=== PATIENT | female | born 1990 | race Caucasian/White ===

== ENCOUNTER 2016-12-01 21:01 | Emergency (ER) | payer SELFPAY ==
[~2016-12-01] VITALS: Ht 157.5 cm; Wt 85.8 kg
[2016-12-01] MEDS ORDERED: SODIUM CHLORIDE 0.9% 1,000ML IVBOLUS ONE (22:30)
[2016-12-01] MEDS ORDERED: KETOROLAC 30 MG/1 ML IVPush ONE (22:30)
[2016-12-01] MEDS ORDERED: KETOROLAC 30 MG/1 ML ONE (22:31)
[2016-12-01 22:52] LABS: HEMATOCRIT 45.8 % (34.6-47.8); HEMOGLOBIN 15.6 g/dL (11.7-16.4); WHITE BLOOD COUNT 9.2 x10^3/uL (3.4-10)
[2016-12-01 23:04] LABS: BLOOD UREA NITROGEN 12 mg/dL (7-18)
[2016-12-01 23:13] LABS: IS PT STATUS REG ER OR PRE ER? YES
[2016-12-02 00:30] VITALS: BP 106/57
== END 2016-12-02 00:55 | disposition home or self-care (01) ==
LOC: ED 23:30
DX: R07.89 Other chest pain (principal); R09.1 Pleurisy
CPT/HCPCS: 36415; 71010; 80048; 82040; 84484; 84703; 85025; 85379; 93005; 96361; 96374; 99285; J1885; J7030

== ENCOUNTER 2019-01-11 10:37 | Emergency (ER) | payer OTHER ==
[~2019-01-11] VITALS: Ht 157.5 cm; Wt 85.7 kg
[2019-01-11] MEDS ORDERED: KETOROLAC 30 MG/1 ML IM ONE (11:00)
[2019-01-11] MEDS ORDERED: DIAZEPAM 5 MG TABLET PO ONE (11:00)
[2019-01-11] MEDS ORDERED: KETOROLAC 30 MG/1 ML ONE (11:14)
[2019-01-11] MEDS ORDERED: DIAZEPAM 5 MG TABLET ONE (11:14)
--- NOTE | 2019-01-11 12:03 | NUR ---
report taken from WINSOME Asencio, pt in MRI. this RN assuming care at this time.
--- NOTE | 2019-01-11 12:18 | NUR ---
pt back from MRI
[2019-01-11 12:22] VITALS: BP 109/68
== END 2019-01-11 12:59 | disposition home or self-care (01) ==
LOC: ED 12:30
DX: M54.5 Low back pain (principal); M62.81 Muscle weakness (generalized); R26.2 Difficulty in walking, not elsewhere classified
CPT/HCPCS: 72110; 72148; 96372; 99284; J1885; J7512